=== PATIENT | male | born 1950 | race Caucasian/White ===

== ENCOUNTER 2017-11-17 10:07 | Day surgery (SDC) | payer MEDICARE, OTHER ==
[~2017-11-17] VITALS: Ht 177.8 cm; Wt 97.7 kg
[~2017-11-17 10:07] MED LIST: ASPI81 PO; CeFAZolin 2 GM/DEXTROSE 0 ML IV ONE; LISI-660 PO; OMEP20 PO; RINGERS SOLUTION,LACTATED 1,000 ML IV ONE; SIMV-261 PO
[2017-11-17] MEDS ORDERED: HYDROmorphone 2 MG/ML SYRINGE IVP ONE (10:08)
[2017-11-17] MEDS ORDERED: FentaNYL CITRATE-PF 100 MCG/2 ML VIAL IVP ONE (10:08)
[2017-11-17] MEDS ORDERED: NEOSTIGMINE METHYLSULFATE 1 MG/ML 10 ML VIAL IVP ONE (10:08)
[2017-11-17] MEDS ORDERED: GLYCOPYRROLATE 0.2 MG/ML VIAL IM ONE (10:08)
[2017-11-17] MEDS ORDERED: METOCLOPRAMIDE HCL 5 MG/ML 2 ML VIAL IVP ONE (10:08)
[2017-11-17] MEDS ORDERED: LIDOCAINE HCL/PF 2% 5 ML VIAL IM ONE (10:08)
[2017-11-17] MEDS ORDERED: PROPOFOL 1% 20 ML VIAL IVP ONE (10:08)
[2017-11-17] MEDS ORDERED: ROCURONIUM BROMIDE 10 MG/ML 5 ML VIAL IVP ONE (10:08)
[2017-11-17] MEDS ORDERED: MIDAZOLAM HCL 2 MG/2 ML VIAL IVP ONE (10:08)
[2017-11-17] MEDS ORDERED: CeFAZolin 2 GM/DEXTROSE 50 ML IV ONE (10:30)
[2017-11-17] MEDS ORDERED: RINGERS SOLUTION,LACTATED 1,000 ML IV ONE ×2 (10:30→13:15)
[2017-11-17 10:36] LABS: BASOPHILS % (AUTO) 0.6 % (0.0-2.0); EOSINOPHILS % (AUTO) 2.6 % (1.0-6.0); HEMATOCRIT 47.1 % (41-53); HEMOGLOBIN 16.4 g/dL (13.5-17.5); LYMPHOCYTES # (AUTO) 2.1 K/uL (1.0-4.8); LYMPHOCYTES % (AUTO) 26.5 % (22.0-44.0); MEAN CORPUSCULAR HEMOGLOBIN 31.8 pg (26.0-34.0); MEAN CORPUSCULAR HGB CONC 34.8 G/dL (31.0-37.0); MEAN CORPUSCULAR VOLUME 91 fL (80-100); MONOCYTES # (AUTO) 0.6 K/uL (0.1-1.0); MONOCYTES % (AUTO) 7.9 % (2.0-9.0); NEUTROPHILS # (AUTO) 4.9 K/uL (1.8-7.7); NEUTROPHILS % (AUTO) 62.4 % (40.0-70.0); PLATELET COUNT (AUTO) 243 K/uL (150-450); RED BLOOD CELL COUNT(AUTO) 5.16 MIL/uL (4.50-5.90); RED CELL DISTRIBUTION WIDTH 12.9 % (11.5-14.5)
[2017-11-17 10:49] LABS: ANION GAP 11 mmol/L (8-16); CALCIUM, TOTAL 8.7 mg/dL (8.8-10.5); CARBON DIOXIDE 24 mmol/L (22-29); CHLORIDE 107 mmol/L (98-107); CREATININE 0.97 mg/dL (0.60-1.30); GLOMERULAR FILTR. RATE CALC > 60 mL/min (>60); GLUCOSE,RANDOM 96 mg/dL (70-110); POTASSIUM 4.1 mmol/L (3.5-5.1); SODIUM SERUM 142 mmol/L (136-145); UREA NITROGEN, BLOOD 15 mg/dL (7-18)
[2017-11-17 10:50] LABS: PROTHROMBIN TIME 10.2 SEC (9.4-11.6)
[2017-11-17 10:55] LABS: ALANINE AMINOTRANSFERASE 25 U/L (12-78); ALBUMIN 3.9 g/dL (3.4-5.0); ALKALINE PHOSPHATASE 93 U/L (46-116); ASPARTATE AMINOTRANSFERASE 21 U/L (15-37); BILIRUBIN,TOTAL 0.7 mg/dL (0.1-1.0); TOTAL PROTEIN, SERUM 7.7 g/dL (6.4-8.2)
[2017-11-17] MEDS ORDERED: MEPERIDINE HCL/PF 25 MG/0.5 ML AMP IVP PRN (11:15)
[2017-11-17] MEDS ORDERED: OXYGEN THERAPY IH SCH (11:15)
[2017-11-17] MEDS ORDERED: HYDR-4061 PO (11:39)
[2017-11-17] MEDS ORDERED: ACET-784 PO (11:40)
[2017-11-17] MEDS ORDERED: BUPIVACAINE HCL/PF 0.25% 30 ML VIAL ONE (12:11)
[2017-11-17] MEDS ORDERED: MICROFIBRILLAR COLLAGEN 1 GM PACKAGE TP ONE (12:44)
[2017-11-17] MEDS ORDERED: MUPIROCIN CALCIUM 2% 22 GM OINTMENT ONE (12:44)
[2017-11-17] MEDS ORDERED: VANCOMYCIN HCL 1 GM/VIAL ONE (12:44)
[2017-11-17] MEDS ORDERED: HYDROmorphone 2 MG/ML SYRINGE ONE (14:04)
[2017-11-17] MEDS ORDERED: MEPERIDINE HCL/PF 25 MG/0.5 ML AMP ONE (14:04)
[2017-11-17] MEDS ORDERED: FentaNYL CITRATE-PF 100 MCG/2 ML VIAL ONE (14:04)
[2017-11-17] MEDS: FentaNYL CITRATE-PF 100 MCG/2 ML VIAL IVP PRN ×2 (14:07→14:19)
[2017-11-17] MEDS: HYDROmorphone 2 MG/ML SYRINGE IVP PRN ×2 (14:24→14:33)
== END 2017-11-17 15:40 | disposition home or self-care (01) ==
LOC: SURGERY 10:07
PROVIDERS: ATTEND Orthopaedic Surgery
DX: S52.571A Other intraarticular fracture of lower end of right radius, initial encounter for closed fracture (principal); I10 Essential (primary) hypertension; K21.9 Gastro-esophageal reflux disease without esophagitis; M19.90 Unspecified osteoarthritis, unspecified site; E78.5 Hyperlipidemia, unspecified; I25.2 Old myocardial infarction; Z79.01 Long term (current) use of anticoagulants; Z87.891 Personal history of nicotine dependence; Z72.89 Other problems related to lifestyle; Z95.5 Presence of coronary angioplasty implant and graft; Z96.652 Presence of left artificial knee joint; Z86.74 Personal history of sudden cardiac arrest; Z79.82 Long term (current) use of aspirin; Z79.891 Long term (current) use of opiate analgesic; Z98.890 Other specified postprocedural states; Z79.899 Other long term (current) drug therapy; X58.XXXA Exposure to other specified factors, initial encounter; Y93.89 Activity, other specified; Y92.89 Other specified places as the place of occurrence of the external cause; Y99.8 Other external cause status
CPT/HCPCS: 25609; 36415; 80053; 85025; 85610; 85730; 93005 ×2; C1713 ×3; J0690 ×2; J1170; J2250; J2704; J2765; J3010; J3490 ×4; J7120; J3370